=== PATIENT | female | born 1995 | race Two or more races ===

== ENCOUNTER 2018-12-24 13:29 | Emergency (ER) | payer MEDICAID ==
[~2018-12-24] VITALS: Ht 157.5 cm; Wt 80.7 kg
[2018-12-24 13:43] VITALS: BP 116/64
[2018-12-24 14:56] VITALS: BP 129/75
== END 2018-12-24 14:57 | disposition home or self-care (01) ==
LOC: MED 13:29
DX: S60.222A Contusion of left hand, initial encounter (principal); W23.0XXA Caught, crushed, jammed, or pinched between moving objects, initial encounter; Y93.89 Activity, other specified; Y92.89 Other specified places as the place of occurrence of the external cause; Y99.8 Other external cause status
CPT/HCPCS: 73140; 99283